=== PATIENT | male | born 1955 | race African-American/Black ===

== ENCOUNTER 2018-01-10 11:31 | Inpatient (IN) | payer OTHER ==
[2018-01-10 13:00] VITALS: BMI 23.6
--- NOTE | 2018-01-10 16:56 | HP ---
CIWA Score - CIWA Score Nausea/Vomitin-No Nausea/No Vomiting Muscle Tremors: 4-Moderate,w/Arms Extend Anxiety: 4-Mod. Anxious/Guarded Agitation: 4-Moderately Restless Paroxysmal Sweats: 3 Orientation: 0-Oriented Tacttile Disturbances: 0-None Auditory Disturbances: 0-None Visual Disturbances: 0-None Headache: 0-None Present CIWA-Ar Total Score: 15 Admission ROS BHS - HPI Chief Complaint: I am here to detox. I need help. Allergies/Adverse Reactions: Allergies Allergy/AdvReac Type Severity Reaction Status Date / Time No Known Allergies Allergy Verified 01/10/18 12:58 History of Present Illness: pt is a 62yr old male with a history of alcohol dependence seeking detox for treatment. Exam Limitations: No Limitations - Ebola screening Have you traveled outside of the country in the last 21 days: No Have you had contact with anyone from an Ebola affected area: No Have you been sick,other than usual withdrawal symptoms: No Do you have a fever: No - Review of Systems Constitutional: Diaphoresis, Loss of Appetite, Night Sweats, Changes in sleep EENT: reports: No Symptoms Reported Respiratory: reports: Cough, Productive cough Cardiac: reports: Syncope GI: reports: Poor Appetite, Poor Fluid Intake : reports: No Symptoms Reported Musculoskeletal: reports: No Symptoms Reported Integumentary: reports: Flushing, Sweating Neuro: reports: Tingling, Tremors Endocrine: reports: Excessive Sweating, Flushing, Intolerance to Cold, Intolerance to Heat, Unexplained Weight Loss Psychiatric: reports: Judgement Intact, Mood/Affect Appropiate, Orientated x3, Agitated, Anxious Other Systems: Reviewed and Negative Patient History - Patient Medical History Hx Anemia: No Hx Asthma: No Hx Chronic Obstructive Pulmonary Disease (COPD): No Hx Cancer: No Hx Cardiac Disorders: No Hx Congestive Heart Failure: No Hx Hypertension: No Hx Hypercholesterolemia: No Hx Pacemaker: No HX Cerebrovascular Accident: No Hx Seizures: No Hx Dementia: No Hx Diabetes: No Hx Gastrointestinal Disorders: No Hx Liver Disease: No (hep c, past hx of possible cirrhosis) Hx Genitourinary Disorders: No Hx Sexually Transmitted Disorders: Yes (HIV) Hx Renal Disease (ESRD): No Hx Thyroid Disease: No Hx Human Immunodeficiency Virus (HIV): Yes (SINCE 1988) Hx Hepatitis C: Yes (SINCE 1988) Hx Depression: Yes Hx Suicide Attempt: No (denies) Hx Bipolar Disorder: No Hx Schizophrenia: No - Patient Surgical History Past Surgical History: No Hx Neurologic Surgery: No Hx Cataract Extraction: No Hx Cardiac Surgery: No Hx Lung Surgery: No Hx Breast Surgery: No Hx Breast Biopsy: No Hx Abdominal Surgery: No Hx Appendectomy: No Hx Cholecystectomy: No Hx Genitourinary Surgery: No Hx Section: No Hx Orthopedic Surgery: No Anesthesia Reaction: No - PPD History Previous Implant?: Yes Documented Results: Negative w/o proof Implanted On Prior [facility] Admission?: No Results: Hx. Positive PPD to be Administered?: No - Reproductive History Patient is a Female of Child Bearing Age (11 -55 yrs old): No - Smoking Cessation Smoking history: Current every day smoker Have you smoked in the past 12 months: Yes Aproximately how many cigarettes per day: 3 Hx Chewing Tobacco Use: No Initiated information on smoking cessation: Yes 'Breaking Loose' booklet given: 01/10/18 - Substance & Tx. History Hx Alcohol Use: Yes Hx Substance Use: Yes Substance Use Type: Alcohol, Marijuana Hx Substance Use Treatment: Yes (last detox 2014 [facility]) - Substances Abused Alcohol Route: Oral Frequency: Daily Amount used: beer- 3cans daily- 160z liquor- 1pt Age of first use: 19 Date of Last Use: 01/09/18 Marijuana/Hashish Route: Smoking Frequency: 1-2 times per week Amount used: $10 Age of first use: 26 Date of Last Use: 01/05/18 Family Disease History - Family Disease History Family Disease History: Diabetes: Grandparent (GRANDMOTHER;AUNT;COUSINS) Admission Physical Exam [facility] - Vital Signs Vital Signs: Vital Signs - 24 hr 01/10/18 12:56 Temperature 97.3 F L Pulse Rate 61 Respiratory 20 Rate Blood Pressure 149/76 - Physical General Appearance: Yes: Appropriately Dressed, Moderate Distress, Tremorous, Irritable, Sweating, Anxious HEENTM: Yes: Normal Voice Respiratory: Yes: Lungs Clear, Normal Breath Sounds, No Respiratory Distress Neck: Yes: Within Normal Limits Breast: Yes: Within Normal Limits Cardiology: Yes: Regular Rhythm, Regular Rate, S1, S2 Abdominal: Yes: Normal Bowel Sounds, Non Tender, Soft Genitourinary: Yes: Within Normal Limits Back: Yes: Normal Inspection Musculoskeletal: Yes: full range of Motion Extremities: Yes: Normal Capillary Refill, Normal Inspection, Tremors Neurological: Yes: Fully Oriented, Alert, Normal Response Integumentary: Yes: Normal Color, Diaphoresis Lymphatic: Yes: Within Normal Limits - Diagnostic (1) Alcohol dependence with withdrawal Current Visit: Yes Status: Chronic Qualifiers: Complication of substance-induced condition: uncomplicated Qualified Code(s ): F10.230 - Alcohol dependence with withdrawal, uncomplicated (2) Cannabis dependence Current Visit: Yes Status: Chronic (3) Cocaine dependence Current Visit: Yes Status: Chronic (4) Human immunodeficiency virus infection Current Visit: Yes Status: Chronic (5) Nicotine dependence Current Visit: Yes Status: Chronic Cleared for Admission [facility] - Detox or Rehab [facility] Level of Care: Medically Managed Detox Regimen/Protocol: Librium [facility] Breath Alcohol Content Breath Alcohol Content: 0 Urine Drug Screen - Results Drug Screen Negative: No Urine Drug Screen Results: THC-Marijuana, GREGG-Cocaine
[2018-01-10] MEDS ORDERED: chlordiazePOXIDE HCL 25 MG CAPSULE PO PRN (16:59)
[2018-01-10] MEDS ORDERED: chlordiazePOXIDE HCL 25 MG CAPSULE PO ONE (16:59)
[2018-01-10] MEDS ORDERED: ACETAMINOPHEN 325 MG TABLET (FP) PO PRN (16:59)
[2018-01-10] MEDS ORDERED: IBUPROFEN 400 MG TABLET (FP) PO PRN (16:59)
[2018-01-10] MEDS ORDERED: P-EPHED 60MG/TRIPROLIDI 2.5MG TABLET PO PRN (16:59)
[2018-01-10] MEDS ORDERED: MAGNESIUM HYDROX 2400MG/30ML ORAL SUSPENSION 30 ML CUP PO PRN (16:59)
[2018-01-10] MEDS ORDERED: MAGNESIUM CITRATE 300 ML BOTTLE PO PRN (16:59)
[2018-01-10] MEDS ORDERED: MENTHOL/PHENOL 1 EACH UD MM PRN (16:59)
[2018-01-10] MEDS ORDERED: hydrOXYzine PAMOATE 50 MG CAPSULE (FP) PO PRN (16:59)
[2018-01-10] MEDS ORDERED: MAG HYDROX/AL HYDROX/SIMETH 30 ML UNIT-DOSE CUP PO PRN (16:59)
[2018-01-10] MEDS ORDERED: guaiFENesin/D-METHORPHAN HB 10 ML UNIT-DOSE CUPS PO PRN (16:59)
[2018-01-10] MEDS ORDERED: LOPERAMIDE HCL 2 MG CAPSULE PO PRN (16:59)
[2018-01-10] MEDS: THIAMINE HCL 100 MG TABLET (FP) PO SCH (21:16)
[2018-01-10] MEDS ORDERED: MELATONIN 5 MG TABLETS PO PRN (22:00)
[2018-01-10] MEDS: chlordiazePOXIDE HCL 25 MG CAPSULE PO SCH (22:08)
[2018-01-11] MEDS: chlordiazePOXIDE HCL 25 MG CAPSULE PO SCH ×4 (05:11→22:30)
[2018-01-11] MEDS: ATAZANAVIR SO4 300 MG CAPSULE PO SCH (07:13)
--- NOTE | 2018-01-11 08:43 | EKG ---
Test Reason : Blood Pressure : / mmHG Vent. Rate : 060 BPM Atrial Rate : 060 BPM P-R Int : 124 ms QRS Dur : 080 ms QT Int : 432 ms P-R-T Axes : 028 051 059 degrees QTc Int : 432 ms NORMAL SINUS RHYTHM MINIMAL VOLTAGE CRITERIA FOR LVH, MAY BE NORMAL VARIANT NO PREVIOUS ECGS AVAILABLE Confirmed by RICARDO CORTES MD ([id number]) on 01/11/2018 8:42:32 AM Referred By: Confirmed By:RICAROD CORTES MD
[2018-01-11] MEDS: PRENATAL VITAMINS W/ FOLIC ACID TABLET (FP) PO SCH (10:13)
[2018-01-11] MEDS: EMTRICITABINE 200MG/TENOFOVIR 300MG PO SCH (10:13)
[2018-01-11] MEDS: RITONAVIR 100 MG TABLET PO SCH (10:13)
[2018-01-11] MEDS: NICOTINE 21 MG/24 HOURS TOPICAL PATCH TD SCH (10:13)
[2018-01-11 10:50] LABS: HEMATOCRIT 42.5 % (35.4-49); HEMOGLOBIN 13.9 GM/dL (11.7-16.9); MCH 29.7 pg (25.7-33.7); MCHC 32.7 g/dl (32.0-35.9); MEAN CELL VOLUME 90.8 fl (80-96); MEAN PLT VOLUME 9.3 fl (7.5-11.1); PLATELET COUNT 141 K/MM3 (134-434); RBC 4.68 M/mm3 (4.00-5.60); RDW 13.8 % (11.9-15.9); WHITE BLOOD COUNT 2.7 K/mm3 (4.0-10.0)
[2018-01-11 10:59] LABS: CHLORIDE 104 mmol/L (98-107); POTASSIUM 3.6 mmol/L (3.5-5.1); SODIUM 142 mmol/L (136-145)
[2018-01-11 11:14] LABS: ALBUMIN 3.3 g/dl (3.4-5.0); ALK PHOS 145 U/L (45-117); ANION GAP 8 (8-16); BILIRUBIN,TOTAL 0.6 mg/dL (0.2-1.0); BLOOD UREA NITROGEN 9 mg/dL (7-18); CALCIUM 8.2 mg/dL (8.5-10.1); CO2 30 mmol/L (21-32); CREATININE 0.8 mg/dL (0.7-1.3); GLUCOSE,RANDOM 92 mg/dL (74-106); SGOT/AST 60 U/L (15-37); SGPT/ALT 41 U/L (12-78); TOT PROT 7.1 g/dl (6.4-8.2)
--- NOTE | 2018-01-11 12:04 | PN ---
[facility] CIWA - CIWA Score Nausea/Vomitin-No Nausea/No Vomiting Muscle Tremors: None Anxiety: 4-Mod. Anxious/Guarded Agitation: 3 Paroxysmal Sweats: 3 Orientation: 2-Disoriented Date<2 days Tacttile Disturbances: 2-Mild Itch/Numbness/Burn Auditory Disturbances: 2-Mild Harshness/Frighten Visual Disturbances: 0-None Headache: 0-None Present CIWA-Ar Total Score: 16 BHS Progress Note (SOAP) Subjective: Sweating, Body Aches, Anxious. Objective: PATIENT A & O X 2 (UNCERTAIN ABOUT CURRENT DAY / DATE). PATIENT OBSERVED AMBULATING ON UNIT UNASSISTED. NO ACUTE DISTRESS. 01/11/18 11:58 Vital Signs Temperature 97.1 F L 01/11/18 09:46 Pulse Rate 77 01/11/18 09:46 Respiratory Rate 18 01/11/18 09:46 Blood Pressure 112/75 01/11/18 09:46 O2 Sat by Pulse Oximetry (%) Laboratory Tests 01/11/18 01/11/18 07:00 07:00 WBC 2.7 L RBC 4.68 Hgb 13.9 Hct 42.5 D MCV 90.8 MCH 29.7 MCHC 32.7 RDW 13.8 D Plt Count 141 D MPV 9.3 Sodium 142 Potassium 3.6 Chloride 104 Carbon Dioxide 30 D Anion Gap 8 BUN 9 Creatinine 0.8 Creat Clearance w eGFR > 60 Random Glucose 92 Calcium 8.2 L Total Bilirubin 0.6 AST 60 H D ALT 41 D Alkaline Phosphatase 145 H Total Protein 7.1 Albumin 3.3 L LABS NOTED. RPR, UA RESULTS PENDING. 01/11/18 12:00 01/11/18 12:04 Assessment: 01/11/18 12:00 WITHDRAWAL SYMPTOMS. Plan: CONTINUE DETOX. PATIENT REPORTS THAT HE FELL AND HAD INJURY APPROX. 7-8 DAYS AGO AND THAT HE INJURED HIS LEFT HAND AT THAT TIME. PATIENT NOTES THAT HE WAS EVALUATED AT ER JUST AFTERWARD (PATIENT UNABLE TO RECALL NAME OF HOSPITAL ER); HOWEVER, PATIENT DOES NOT RECALL IF X-RAY AND/OR ASSESSMENT OF LEFT HAND WAS DONE AT ER. X-RAY OF LEFT HAND ORDERED.
--- NOTE | 2018-01-11 12:41 | CONSULT ---
[facility] Psychiatric Consult - Data Date of interview: 01/11/18 Admission source: [facility] Identifying data: Patient is a 62 year old single male, unemployed and supported by [employer]. This is one of multiple admissions for patient. Pt. admitted to for alcohol, cocaine, and marijuana dependence. Substance Abuse History: Smoking Cessation. Smoking history: Current every day smoker. Have you smoked in the past 12 months: Yes. Aproximately how many cigarettes per day: 3. Hx Chewing Tobacco Use: No. Initiated information on smoking cessation: Yes. 'Breaking Loose' booklet given: 01/10/18. - Substance & Tx. History. Hx Alcohol Use: Yes. Hx Substance Use: Yes. Substance Use Type : Alcohol, Marijuana. Hx Substance Use Treatment: Yes (last detox 2014 [facility]). - Substances Abused. Alcohol. Route: Oral. Frequency: Daily. Amount used: beer- 3cans daily- 160z liquor- 1pt. Age of first use: 19. Date of Last Use: 01/09/18. Marijuana/Hashish. Route: Smoking. Frequency: 1-2 times per week. Amount used: $10. Age of first use: 26. Date of Last Use: 09/19 Medical History: HIV, Hep C Psychiatric History: Patient denies h/o psychiatric hospitalizations. OPD was provided to him by "[facility] [employer]" approximately 4-5 years ago. As per chart, patient was prescribed zoloft 25mg + Seroquel 25mg BID. Pt has not accepted psychotropic medications in several years. Pt. denies h/o suicide attempt. Pt. reports poor sleep. Physical/Sexual Abuse/Trauma History: Denies. Mental Status Exam - Mental Status Exam Alert and Oriented to: Time, Place, Person Cognitive Function: Good Patient Appearance: Well Groomed Mood: Euthymic Affect: Mood Congruent Patient Behavior: Cooperative Speech Pattern: Appropriate Thought Process: Circumstantial Thought Disorder: Not Present Hallucinations: Denies Suicidal Ideation: Denies Homicidal Ideation: Denies Insight/Judgement: Poor Muscle strength/Tone: Normal Gait/Station: Normal Psychiatric Findings - Problem List ([place] 1, 2,3) (1) Substance-induced sleep disorder Current Visit: Yes Status: Acute (2) Alcohol dependence with withdrawal Current Visit: Yes Status: Acute Qualifiers: Complication of substance-induced condition: uncomplicated Qualified Code(s ): F10.230 - Alcohol dependence with withdrawal, uncomplicated (3) Cannabis dependence Current Visit: Yes Status: Chronic (4) Cocaine dependence Current Visit: Yes Status: Chronic (5) Nicotine dependence Current Visit: Yes Status: Chronic - Initial Treatment Plan Initial Treatment Plan: Psychoeducation provided. Detoxification in progress. Seroquel 25mg qhs. Benefits and side effects discussed. Verbal consent given.
[2018-01-11] MEDS: BACITRACIN 0.9 GM PACKET TP SCH ×2 (12:55→22:30)
[2018-01-11] MEDS: CLOTRIMAZOLE 10 MG TROCHE (FP) PO SCH ×3 (14:34→22:30)
[2018-01-11 18:48] LABS: URINE APPEARANCE CLOUDY; URINE BILIRUBIN NEGATIVE (<2.0 mg/dL); URINE COLOR AMBER; URINE GLUCOSE (UA) NEGATIVE (NEGATIVE); URINE KETONE NEGATIVE (NEGATIVE); URINE NITRITE POSITIVE (NEGATIVE); URINE UROBILINOGEN 4.0 E.U/dl mg/dL (0.2-1.0)
[2018-01-11 18:55] LABS: URINE LEUK ESTERASE 2+ (NEGATIVE); URINE PROTEIN 1+ (NEGATIVE)
[2018-01-11 19:04] LABS: EPI CELLS RARE /HPF (FEW); URINE BACTERIA RARE /hpf (NONE SEEN); URINE MUCUS MANY
[2018-01-11] MEDS: THIAMINE HCL 100 MG TABLET (FP) PO SCH (22:30)
[2018-01-11] MEDS: QUEtiapine FUMARATE 25 MG TABLET (FP) PO SCH (22:30)
[2018-01-12] MEDS: CLOTRIMAZOLE 10 MG TROCHE (FP) PO SCH ×5 (05:16→23:45)
[2018-01-12] MEDS: chlordiazePOXIDE HCL 25 MG CAPSULE PO SCH ×3 (05:16→17:27)
[2018-01-12] MEDS: EMTRICITABINE 200MG/TENOFOVIR 300MG PO SCH (09:00)
[2018-01-12] MEDS: RITONAVIR 100 MG TABLET PO SCH (09:00)
[2018-01-12] MEDS: ATAZANAVIR SO4 300 MG CAPSULE PO SCH (09:00)
[2018-01-12] MEDS: NICOTINE 21 MG/24 HOURS TOPICAL PATCH TD SCH (11:00)
[2018-01-12] MEDS: PRENATAL VITAMINS W/ FOLIC ACID TABLET (FP) PO SCH (11:00)
[2018-01-12] MEDS: BACITRACIN 0.9 GM PACKET TP SCH ×2 (11:00→23:45)
--- NOTE | 2018-01-12 13:52 | PN ---
S CIWA - CIWA Score Nausea/Vomitin-No Nausea/No Vomiting Muscle Tremors: 4-Moderate,w/Arms Extend Anxiety: 4-Mod. Anxious/Guarded Agitation: 4-Moderately Restless Paroxysmal Sweats: 1-Minimal Palms Moist Orientation: 0-Oriented Tacttile Disturbances: 0-None Auditory Disturbances: 0-None Visual Disturbances: 0-None Headache: 0-None Present CIWA-Ar Total Score: 13 S Progress Note (SOAP) Subjective: ANXIETY,SWEATS,TREMORS. Objective: 01/12/18 13:50 Vital Signs 01/12/18 01/12/18 01/12/18 06:30 09:25 13:13 Temperature 97.0 F L 96.6 F L 96.6 F L Pulse Rate 66 73 81 Respiratory 18 18 18 Rate Blood Pressure 123/71 114/74 127/73 Laboratory Tests 01/10/18 01/11/18 01/11/18 18:12 07:00 07:00 WBC 2.7 L RBC 4.68 Hgb 13.9 Hct 42.5 D MCV 90.8 MCH 29.7 MCHC 32.7 RDW 13.8 D Plt Count 141 D MPV 9.3 Sodium 142 Potassium 3.6 Chloride 104 Carbon Dioxide 30 D Anion Gap 8 BUN 9 Creatinine 0.8 Creat Clearance w eGFR > 60 Random Glucose 92 Calcium 8.2 L Total Bilirubin 0.6 AST 60 H D ALT 41 D Alkaline Phosphatase 145 H Total Protein 7.1 Albumin 3.3 L Urine Color Nadja Urine Appearance Cloudy Urine pH 5.0 Ur Specific [place] 1.021 Urine Protein 1+ H Urine Glucose (UA) Negative Urine Ketones Negative Urine Blood 1+ H Urine Nitrite Positive Urine Bilirubin Negative Urine Urobilinogen 4.0 e.u/dl Ur Leukocyte Esterase 2+ H Urine WBC (Auto) 177 Urine RBC (Auto) 9 Ur Epithelial Cells Rare Urine Bacteria Rare Urine Mucus Many RPR Titer 01/11/18 07:00 WBC RBC Hgb Hct MCV MCH MCHC RDW Plt Count MPV Sodium Potassium Chloride Carbon Dioxide Anion Gap BUN Creatinine Creat Clearance w eGFR Random Glucose Calcium Total Bilirubin AST ALT Alkaline Phosphatase Total Protein Albumin Urine Color Urine Appearance Urine pH Ur Specific [place] Urine Protein Urine Glucose (UA) Urine Ketones Urine Blood Urine Nitrite Urine Bilirubin Urine Urobilinogen Ur Leukocyte Esterase Urine WBC (Auto) Urine RBC (Auto) Ur Epithelial Cells Urine Bacteria Urine Mucus RPR Titer Nonreactive UA = ABNORMAL RESULT Assessment: 01/12/18 13:51 WITHDRAWAL SX Plan: CONTINUE DETOX [facility] BACTRIM DS 1 TAB PO BID X 7DAYS
[2018-01-12] MEDS ORDERED: SULFAMETHOXAZOLE/TRIMETHOPRIM 800MG/160MG D.S. TABLET PO ONE (14:04)
[2018-01-12] MEDS: QUEtiapine FUMARATE 25 MG TABLET (FP) PO SCH (23:45)
[2018-01-12] MEDS: SULFAMETHOXAZOLE/TRIMETHOPRIM 800MG/160MG D.S. TABLET PO SCH (23:45)
[2018-01-12] MEDS: THIAMINE HCL 100 MG TABLET (FP) PO SCH (23:46)
[2018-01-12] MEDS: chlordiazePOXIDE 5 MG CAPSULE PO SCH (23:46)
[2018-01-13] MEDS: chlordiazePOXIDE 5 MG CAPSULE PO SCH ×3 (05:44→18:10)
[2018-01-13] MEDS: CLOTRIMAZOLE 10 MG TROCHE (FP) PO SCH ×5 (05:46→22:19)
[2018-01-13] MEDS: EMTRICITABINE 200MG/TENOFOVIR 300MG PO SCH (10:35)
[2018-01-13] MEDS: NICOTINE 21 MG/24 HOURS TOPICAL PATCH TD SCH (10:35)
[2018-01-13] MEDS: SULFAMETHOXAZOLE/TRIMETHOPRIM 800MG/160MG D.S. TABLET PO SCH ×2 (10:35→22:19)
[2018-01-13] MEDS: BACITRACIN 0.9 GM PACKET TP SCH ×2 (10:35→22:18)
[2018-01-13] MEDS: RITONAVIR 100 MG TABLET PO SCH (10:35)
[2018-01-13] MEDS: PRENATAL VITAMINS W/ FOLIC ACID TABLET (FP) PO SCH (10:35)
[2018-01-13] MEDS: ATAZANAVIR SO4 300 MG CAPSULE PO SCH (10:35)
--- NOTE | 2018-01-13 16:13 | PN ---
BHS Progress Note (SOAP) Subjective: Sweating, interrupted sleep Objective: 01/13/18 16:09 Last Vital Signs Temp Pulse Resp BP Pulse Ox 97.2 F L 86 18 112/70 01/13/18 13:31 01/13/18 13:31 01/13/18 13:31 01/13/18 13:31 Laboratory Tests 01/10/18 01/11/18 01/11/18 18:12 07:00 07:00 WBC 2.7 L RBC 4.68 Hgb 13.9 Hct 42.5 D MCV 90.8 MCH 29.7 MCHC 32.7 RDW 13.8 D Plt Count 141 D MPV 9.3 Sodium 142 Potassium 3.6 Chloride 104 Carbon Dioxide 30 D Anion Gap 8 BUN 9 Creatinine 0.8 Creat Clearance w eGFR > 60 Random Glucose 92 Calcium 8.2 L Total Bilirubin 0.6 AST 60 H D ALT 41 D Alkaline Phosphatase 145 H Total Protein 7.1 Albumin 3.3 L Urine Color Nadja Urine Appearance Cloudy Urine pH 5.0 Ur Specific [place] 1.021 Urine Protein 1+ H Urine Glucose (UA) Negative Urine Ketones Negative Urine Blood 1+ H Urine Nitrite Positive Urine Bilirubin Negative Urine Urobilinogen 4.0 e.u/dl Ur Leukocyte Esterase 2+ H Urine WBC (Auto) 177 Urine RBC (Auto) 9 Ur Epithelial Cells Rare Urine Bacteria Rare Urine Mucus Many RPR Titer 01/11/18 07:00 WBC RBC Hgb Hct MCV MCH MCHC RDW Plt Count MPV Sodium Potassium Chloride Carbon Dioxide Anion Gap BUN Creatinine Creat Clearance w eGFR Random Glucose Calcium Total Bilirubin AST ALT Alkaline Phosphatase Total Protein Albumin Urine Color Urine Appearance Urine pH Ur Specific [place] Urine Protein Urine Glucose (UA) Urine Ketones Urine Blood Urine Nitrite Urine Bilirubin Urine Urobilinogen Ur Leukocyte Esterase Urine WBC (Auto) Urine RBC (Auto) Ur Epithelial Cells Urine Bacteria Urine Mucus RPR Titer Nonreactive Labs reviewed: UA shows nitrite positive (acute UTI) Assessment: 01/13/18 16:11 Withdrawal symptoms Noted with acute UTI Plan: Continue detox Acute UTI: encouraged PO water hydration, patient is on bactrim; send urine culture and sensitivity (was not done prior to initiating antibiotic), will repeat UA
[2018-01-13] MEDS: QUEtiapine FUMARATE 25 MG TABLET (FP) PO SCH (22:19)
[2018-01-13] MEDS: chlordiazePOXIDE HCL 10 MG CAPSULE PO SCH (22:19)
[2018-01-13] MEDS: THIAMINE HCL 100 MG TABLET (FP) PO SCH (22:19)
[2018-01-14] MEDS: chlordiazePOXIDE HCL 10 MG CAPSULE PO SCH ×2 (06:36→10:06)
[2018-01-14] MEDS: CLOTRIMAZOLE 10 MG TROCHE (FP) PO SCH ×3 (06:37→14:32)
[2018-01-14] MEDS: ATAZANAVIR SO4 300 MG CAPSULE PO SCH (10:06)
[2018-01-14] MEDS: PRENATAL VITAMINS W/ FOLIC ACID TABLET (FP) PO SCH (10:06)
[2018-01-14] MEDS: BACITRACIN 0.9 GM PACKET TP SCH (10:07)
[2018-01-14] MEDS: EMTRICITABINE 200MG/TENOFOVIR 300MG PO SCH (10:07)
[2018-01-14] MEDS: SULFAMETHOXAZOLE/TRIMETHOPRIM 800MG/160MG D.S. TABLET PO SCH (10:07)
[2018-01-14] MEDS: NICOTINE 21 MG/24 HOURS TOPICAL PATCH TD SCH (10:07)
[2018-01-14] MEDS: RITONAVIR 100 MG TABLET PO SCH (10:07)
--- NOTE | 2018-01-14 12:44 | PN ---
BHS Progress Note (SOAP) Subjective: DETOX COMPLETED. ALERT O X 3. PT REFERRED TO REHAB TODAY. Objective: 01/14/18 12:35 Vital Signs 01/14/18 01/14/18 06:35 09:16 Temperature 97.1 F L 97.6 F Pulse Rate 71 81 Respiratory 16 18 Rate Blood Pressure 105/66 140/85 Laboratory Tests 01/10/18 01/11/18 01/11/18 18:12 07:00 07:00 WBC 2.7 L RBC 4.68 Hgb 13.9 Hct 42.5 D MCV 90.8 MCH 29.7 MCHC 32.7 RDW 13.8 D Plt Count 141 D MPV 9.3 Sodium 142 Potassium 3.6 Chloride 104 Carbon Dioxide 30 D Anion Gap 8 BUN 9 Creatinine 0.8 Creat Clearance w eGFR > 60 Random Glucose 92 Calcium 8.2 L Total Bilirubin 0.6 AST 60 H D ALT 41 D Alkaline Phosphatase 145 H Total Protein 7.1 Albumin 3.3 L Urine Color Nadja Urine Appearance Cloudy Urine pH 5.0 Ur Specific [place] 1.021 Urine Protein 1+ H Urine Glucose (UA) Negative Urine Ketones Negative Urine Blood 1+ H Urine Nitrite Positive Urine Bilirubin Negative Urine Urobilinogen 4.0 e.u/dl Ur Leukocyte Esterase 2+ H Urine WBC (Auto) 177 Urine RBC (Auto) 9 Ur Epithelial Cells Rare Urine Bacteria Rare Urine Mucus Many RPR Titer 01/11/18 07:00 WBC RBC Hgb Hct MCV MCH MCHC RDW Plt Count MPV Sodium Potassium Chloride Carbon Dioxide Anion Gap BUN Creatinine Creat Clearance w eGFR Random Glucose Calcium Total Bilirubin AST ALT Alkaline Phosphatase Total Protein Albumin Urine Color Urine Appearance Urine pH Ur Specific [place] Urine Protein Urine Glucose (UA) Urine Ketones Urine Blood Urine Nitrite Urine Bilirubin Urine Urobilinogen Ur Leukocyte Esterase Urine WBC (Auto) Urine RBC (Auto) Ur Epithelial Cells Urine Bacteria Urine Mucus RPR Titer Nonreactive PT HAS NOT GIVEN ALL REPEAT URINE SPECIMEN SINCE 01/12/18. PT MAY BE GOING TO REHAB AND WILL REPEAT UA IN REHAB [facility]. IF PT DECLINES REHAB THEN PT WILL FOLLOW UP WITH HIS PRIMARY CARE PROVIDER WITH COPY OF LAB RESULTS. XRAY LEFT HAND: SEE RADIOLOGY REPORT. CORRELATION RECOMMENDED- PT WILL FOLLOW UP WITH ORTHOPEDICS FOR FURTHER EVALUATION AT [facility] WHILE HERE IN REHAB. Assessment: 08/13/18 12:44 MEDICALLY STABLE Plan: D/C PT TODAY TO REHAB.
--- NOTE | 2018-01-14 12:50 | DS ---
[facility] Detox Discharge Summary Admission Date: 01/10/18 Discharge Date: 01/14/18 - History Present History: Alcohol Dependence, Cannabis Dependence, Cocaine Dependence Additional Comments: DETOX COMPLETED. ALERT O X 3. NAD. PT REPORTS HE HAS MEDICAL CARE AT [facility]. REFERRED TO REHAB TODAY ON . Pertinent Past History: PLEASE SEE DX BELOW - Physical Exam Results Vital Signs: Vital Signs Temperature 97.6 F 01/14/18 09:16 Pulse Rate 81 01/14/18 09:16 Respiratory Rate 18 01/14/18 09:16 Blood Pressure 140/85 01/14/18 09:16 O2 Sat by Pulse Oximetry (%) Pertinent Admission Physical Exam Findings: WITHDRAWAL SX Laboratory Tests 01/10/18 01/11/18 01/11/18 18:12 07:00 07:00 WBC 2.7 L RBC 4.68 Hgb 13.9 Hct 42.5 D MCV 90.8 MCH 29.7 MCHC 32.7 RDW 13.8 D Plt Count 141 D MPV 9.3 Sodium 142 Potassium 3.6 Chloride 104 Carbon Dioxide 30 D Anion Gap 8 BUN 9 Creatinine 0.8 Creat Clearance w eGFR > 60 Random Glucose 92 Calcium 8.2 L Total Bilirubin 0.6 AST 60 H D ALT 41 D Alkaline Phosphatase 145 H Total Protein 7.1 Albumin 3.3 L Urine Color Nadja Urine Appearance Cloudy Urine pH 5.0 Ur Specific [place] 1.021 Urine Protein 1+ H Urine Glucose (UA) Negative Urine Ketones Negative Urine Blood 1+ H Urine Nitrite Positive Urine Bilirubin Negative Urine Urobilinogen 4.0 e.u/dl Ur Leukocyte Esterase 2+ H Urine WBC (Auto) 177 Urine RBC (Auto) 9 Ur Epithelial Cells Rare Urine Bacteria Rare Urine Mucus Many RPR Titer 01/11/18 07:00 WBC RBC Hgb Hct MCV MCH MCHC RDW Plt Count MPV Sodium Potassium Chloride Carbon Dioxide Anion Gap BUN Creatinine Creat Clearance w eGFR Random Glucose Calcium Total Bilirubin AST ALT Alkaline Phosphatase Total Protein Albumin Urine Color Urine Appearance Urine pH Ur Specific [place] Urine Protein Urine Glucose (UA) Urine Ketones Urine Blood Urine Nitrite Urine Bilirubin Urine Urobilinogen Ur Leukocyte Esterase Urine WBC (Auto) Urine RBC (Auto) Ur Epithelial Cells Urine Bacteria Urine Mucus RPR Titer Nonreactive - Treatment Hospital Course: Detox Protocol Followed, Detoxed Safely, Responded well, Discharged Condition Good, Rehab Referral Accepted Patient has Accepted a Rehab Referral to: [address] - Medication Discharge Medications: Ambulatory Orders Atazanavir [Reyataz -] 300 mg PO DAILY 06/19/13 Emtricitabine/Tenofovir [Truvada -] 1 tab PO DAILY 06/19/13 Ritonavir [Norvir] 100 mg PO DAILY 06/19/13 - Diagnosis (1) Human immunodeficiency virus infection Current Visit: Yes Status: Chronic (2) Weight decrease Current Visit: Yes Status: Acute (3) Alcohol dependence with withdrawal Current Visit: Yes Status: Acute Qualifiers: Complication of substance-induced condition: uncomplicated Qualified Code(s ): F10.230 - Alcohol dependence with withdrawal, uncomplicated (4) Cannabis dependence, uncomplicated Current Visit: Yes Status: Chronic (5) Cocaine dependence, uncomplicated Current Visit: Yes Status: Chronic (6) Nicotine dependence Current Visit: Yes Status: Acute Qualifiers: Nicotine product type: cigarettes Substance use status: in withdrawal Qualified Code(s): F17.213 - Nicotine dependence, cigarettes, with withdrawal (7) UTI (urinary tract infection) Current Visit: Yes Status: Acute Qualifiers: Urinary tract infection type: site unspecified (8) Fracture, finger Current Visit: Yes Status: Chronic Qualifiers: Encounter type: subsequent encounter Finger: index finger Fracture type: closed Phalanx: proximal Laterality: left Fracture healing: with routine healing - AMA Did Patient Leave Against Medical Advice: No
[2018-01-14 13:29] VITALS: BP 108/71; PULSE 83; TEMP 96.9
== END 2018-01-14 15:24 | disposition other institution (70) | DRG 774 ==
LOC: YASAS 11:31 → Y3N 19:13
PROVIDERS: ADMIT Surgery; ATTEND Surgery
PROC: HZ2ZZZZ Detoxification Services for Substance Abuse Treatment (ICD-10-PCS; principal; 2018-01-10)
DX: F10.230 Alcohol dependence with withdrawal, uncomplicated (principal); F14.20 Cocaine dependence, uncomplicated; F12.20 Cannabis dependence, uncomplicated; F17.210 Nicotine dependence, cigarettes, uncomplicated; Z21 Asymptomatic human immunodeficiency virus [HIV] infection status; N39.0 Urinary tract infection, site not specified; Z87.898 Personal history of other specified conditions; S62.611D Displaced fracture of proximal phalanx of left index finger, subsequent encounter for fracture with routine healing; X58.XXXD Exposure to other specified factors, subsequent encounter; Z59.0 Homelessness
CPT/HCPCS: 36415; 71046-TC-FY; 73130-TC-LR-FY; 80053; 81003; 81015; 85027; 86593; 93005; 93010